=== PATIENT | female | born 1970 | race African-American/Black ===

== ENCOUNTER → 2017-06-01 | Outpatient (CLI) | payer BC ==
[~2017-06-01] MED LIST: FERR142T13 PO; LISI1TAB5 PO; OMEP20CA9 PO
[2017-06-01 13:25] LABS: BASO # 0.1 x10^3/uL (0.0-0.2); BASO % 1 % (0-3); EOS % 1 % (0-3); HEMATOCRIT 34.9 % (36.0-47.0); HEMOGLOBIN 11.9 g/dL (12.0-15.5); LYMPH # 2.3 x10^3/uL (1.0-4.8); LYMPH % 36 % (24-48); MEAN CORPUSCULAR HEMOGLOBIN 29 pg (25-35); MEAN CORPUSCULAR HGB CONC 34 g/dL (31-37); MEAN CORPUSCULAR VOLUME 84 fL (79-100); MONO % 7 % (0-9); NEUT % 55 % (31-73); PLATELET COUNT 198 x10^3/uL (140-400); RED BLOOD COUNT 4.15 x10^6/uL (3.50-5.40); RED CELL DISTRIBUTION WIDTH 14.8 % (11.5-14.5); WHITE BLOOD COUNT 6.4 x10^3/uL (4.0-11.0)
[2017-06-01 14:28] LABS: CALCIUM 8.7 mg/dL (8.5-10.1); CREATININE 0.8 mg/dL (0.6-1.0); POTASSIUM 3.6 mmol/L (3.5-5.1)
== END | disposition home or self-care (01) ==
LOC: SURGPAT 12:34
PROVIDERS: ATTEND Obstetrics & Gynecology
DX: N92.4 Excessive bleeding in the premenopausal period (principal)
CPT/HCPCS: 36415; 80048; 85025

== ENCOUNTER 2017-06-09 09:20 | Observation (INO) | payer BC, OTHER ==
[~2017-06-09] VITALS: Ht 152.4 cm; Wt 73.5 kg
[2017-06-09] VITALS (7 sets, daily range): BP systolic 132–169; BP diastolic 88–103
[~2017-06-09 09:20] MED LIST changes: +DEXAMETHASONE SOD PHOS 20 MG/5 ML VIAL. ONE; +FAMOTIDINE 20 MG/2 ML VIAL ONE; +HYDROmorphone 2 MG/ML VIAL IV PRN; +IV RINGERS,LACTATED 1000ML 1,000 ML IV SCH; +LIDOCAINE 1% PF 2 ML VIAL. ID PRN; +LIDOCAINE 2% PF Vial for OR 5 ML VIAL. ONE; +MIDAZOLAM HCL/PF 2 MG/2 ML VIAL. ONE; +MORPHINE SULFATE 2 MG/ML DISP.SYRIN. IV PRN; +ONDANSETRON PF 4 MG/2 ML VIAL. IV PRN; +ONDANSETRON PF 4 MG/2 ML VIAL. ONE; +PROCHLORPERAZINE 10 MG/2 ML VIAL. IV PRN; +PROPOFOL 20 ML IV ONE; +ROCURONIUM 100 MG/10 ML VIAL. ONE; +fentaNYL PF VIAL 100 MCG/2 ML VIAL IV PRN; +fentaNYL PF VIAL 100 MCG/2 ML VIAL ONE
[2017-06-09 10:01] LABS: NEG OBC UR NEG; POS OBC UR POS
[2017-06-09] MEDS ORDERED: fentaNYL PF VIAL 100 MCG/2 ML VIAL ONE ×3 (10:28→12:30)
[2017-06-09] MEDS ORDERED: ESMOLOL 100 MG/10 ML VIAL. IV ONE (10:31)
[2017-06-09] MEDS ORDERED: BUPIVACAINE-EPI 0.25%-1:200000 MPF 30 ML VIAL. ONE (11:16)
[2017-06-09] MEDS ORDERED: GLYCOPYRROLATE 1 MG/5 ML VIAL. ONE (11:17)
[2017-06-09] MEDS ORDERED: NEOSTIGMINE 10 MG/10 ML VIAL. ONE (11:17)
[2017-06-09] MEDS ORDERED: KETOROLAC 60 MG/2 ML INJ FOR OR. ONE (11:17)
[2017-06-09] MEDS ORDERED: SEVOFLURANE 61 TO 120 MINUTES. IH ONE (11:40)
--- NOTE | 2017-06-09 11:49 | PDOC ---
BRIEF OPERATIVE NOTE Date: Jun 09, 2017 Pre-Op Diagnosis menorrhagia, metrorrhagia, fibroids Post-Op Diagnosis same Procedure Performed lavh, Lso and R salpingectomy Surgeon Radha Lamp Decorator Kayden Anesthesiologist yes Anesthesia Type: General Blood Loss 200cc IV Fluid 1200cc Urine Output 100cc Specimens Obtained uterus, L ovary, bilateral tubes Findings see dictation Complications none SANTY KENDALL MD Jun 09, 2017 11:49
--- NOTE | 2017-06-09 11:50 | DISCH ---
DISCHARGE INSTRUCTIONS Condition on Discharge Condition on Discharge: Stable Activity After Discharge Activity Instructions for Disc: Progressive ambulation Exercise Instruction after Dis: Exercise per therapy Driving Instructions after Dis: No driving for 2 weeks Weight Bearing Status after Di: Full weight bearing, As tolerated Diet after Discharge Diet after Discharge: Regular Wound Incision Care Wound/Incision Care: Ice to area for comfort, May get incision wet Contacting the DRYasmin after DC Call your doctor for: Fever greater than 100 Follow-Up Follow up with: Dr. Kendall in 1 week SANTY KENDALL MD Jun 09, 2017 11:50
[2017-06-09] MEDS ORDERED: 0.9 % SODIUM CHLORIDE 10 ML DISP.SYRIN. IV PRN (12:00)
[2017-06-09] MEDS ORDERED: HYDROcodone/APAP 5/325MG 1 TAB TABLET PO PRN (12:00)
[2017-06-09] MEDS ORDERED: NALOXONE 0.4 MG/ML VIAL. IV PRN (12:00)
[2017-06-09] MEDS ORDERED: IBUPROFEN 600 MG TABLET. PO PRN (12:00)
[2017-06-09] MEDS ORDERED: oxyCODONE/APAP 5/325 1 TAB TABLET PO PRN (12:00)
[2017-06-09] MEDS ORDERED: MAG HYDROX/ALUMINUM HYD/SIMETH 30 ML ORAL.SUSP PO PRN (12:00)
[2017-06-09] MEDS ORDERED: BISACODYL 10 MG SUPP.RECT. PR PRN (12:00)
[2017-06-09] MEDS ORDERED: KETOROLAC 30 MG/ML INJ. IV PRN (12:00)
[2017-06-09] MEDS ORDERED: ONDANSETRON PF 4 MG/2 ML VIAL. IV PRN (12:00)
[2017-06-09] MEDS ORDERED: METOCLOPRAMIDE HCL 10 MG/2 ML VIAL. IV PRN (12:00)
[2017-06-09] MEDS ORDERED: CALCIUM CARBONATE 500 MG TAB.CHEW PO PRN (12:00)
[2017-06-09] MEDS ORDERED: HYDROmorphone 2 MG/ML VIAL IV PRN (12:00)
[2017-06-09] MEDS ORDERED: LACTULOSE 20 GM/30 ML SOLUTION. PO PRN (12:00)
[2017-06-09] MEDS ORDERED: ALBUTEROL SULFATE 2.5 MG/3 ML NEBU. NEB PRN (12:00)
[2017-06-09] MEDS ORDERED: SIMETHICONE 80 MG TAB.CHEW PO PRN (12:00)
[2017-06-09] MEDS ORDERED: HYDROmorphone 2 MG/ML VIAL IM PRN (12:00)
[2017-06-09] MEDS ORDERED: diphenhydrAMINE HCL 25 MG CAPSULE PO PRN (12:00)
[2017-06-09] MEDS ORDERED: diphenhydrAMINE 50 MG/ML VIAL IV PRN (12:00)
[2017-06-09] MEDS ORDERED: ZOLPIDEM 5 MG TABLET. PO PRN (12:00)
[2017-06-09] MEDS: fentaNYL PF VIAL 100 MCG/2 ML VIAL IV PRN ×2 (12:31→12:43)
--- NOTE | 2017-06-09 12:34 | OP ---
DATE OF SURGERY: 06/09/2017 DATE OF SERVICE: 06/09/2017 PREOPERATIVE DIAGNOSES: This is a 47-year-old female who presents today for hysterectomy due to history of menorrhagia, metrorrhagia and an enlarged fibroid uterus that was seen on ultrasound. She desired hysterectomy. POSTOPERATIVE DIAGNOSES: This is a 47-year-old female who presents today for hysterectomy due to history of menorrhagia, metrorrhagia and an enlarged fibroid uterus that was seen on ultrasound. She desired hysterectomy. PROCEDURE: LAVH, left oophorectomy and bilateral salpingectomy. SURGEON: Katlyn Kendall MD ANESTHESIA: General. COMPLICATIONS: None. ESTIMATED BLOOD LOSS: 200 mL. URINE OUTPUT: 100 mL of clear urine. DESCRIPTION OF PROCEDURE: After informed consent was obtained, the patient was taken to the operating room and given a smooth induction of anesthesia without complications. Her legs were placed in Jose stirrups and her abdomen, perineum, and vagina were all prepped and draped in the usual sterile fashion. A bivalve speculum was placed in the vagina and the anterior lip of the cervix was grasped with a single tooth tenaculum. The cervix was injected at the cervicovaginal junction with 0.25% Marcaine with epinephrine at 2, 4, 8 and 10 o'clock on the cervix. The Valtchev was then placed through the cervical os and attached to the tenaculum. We then removed the speculum and I changed gloves and went back above. A 5 mm incision was made just above the umbilicus. The bladeless trocar was placed down through this incision. The camera confirmed good trocar placement. The patient was then placed in Trendelenburg. The uterus was noted to be somewhat enlarged and nodular. Both ovaries were noted to be within normal limits. There was a ruptured, probably a corpus luteum cyst on the right side that was not bleeding and there was a small simple cyst on the left side. The 2 lateral ports were also placed under direct visualization. We then proceeded to cauterize across the round ligament on the right side. This ligament was transected and the bladder flap was created anteriorly using a combination of blunt and sharp dissection with the LigaSure. The same procedure was carried out on the opposite side. The round ligament was cauterized and transected. We then cauterized the mesosalpinx between the tube and the ovary on the right side to remove the tube from the ovary. This was without difficulty. We then cauterized across the uteroovarian pedicle to free the uterus from the ovary on the right. The same procedure was carried out on the opposite side, however, when we transected the tube from the ovary, we ran into significant amount of bleeding. We cauterized this area several times, but were not able to control the bleeding, so we ended up having to sacrifice the left ovary. This was only after multiple attempts to cauterize the bleeding with the LigaSure. We were able to visualize the ureter on the left side and we were able to cauterize across the infundibulopelvic ligament and remove the ovary. Once we did this bleeding, the bleeding stopped. We were then able to cauterize down the uterine vessels on both sides. Once we reached the uterosacral ligaments, we were able to go below, we went below and put a speculum in the vagina. The tenaculum and Valtchev were replaced by 2 Katalina thyroid clamps. A circumferential incision was created around the cervix and the bladder was retracted superiorly using blunt dissection with a Ray-Hayes. We then entered the posterior peritoneum using sharp dissection and ____ the posterior peritoneum to the posterior vaginal wall. We then proceeded to clamp, cut and ligate both uterosacral ligaments on each side. These were tagged for later use and stitched to the lateral vaginal sidewalls at the cuff. We then proceeded to clamp, cut and ligate using the vaginal LigaSure, the pedicles remaining. The remainder of the uterosacral ligaments and the cardinal ligaments and whatever uterine vasculature was left. Once the uterus was free, it was removed from the field along with the left ovary. We then proceeded to evacuate several large clots from the pelvis, but no active bleeding was noted. We then proceeded to close peritoneum using a running pursestring suture of 2-0 Vicryl. We then closed the vaginal cuff with a running locking stitch of 2-0 Vicryl. The cuff was hemostatic. We then went above to irrigate the pelvis. No bleeding was noted. More clots were evacuated. However, again we lost about 200 mL of blood mostly from the left ovary. Once this was sent, Tisseel was sprayed on all the raw surfaces. The patient tolerated the procedure well. The instruments were removed under direct visualization. The ports were removed. The gas was allowed to escape and the port sites were closed with an interrupted suture of 4-0 nylon and infiltrated with anesthetic for patient comfort. The patient tolerated the procedure well. There were no complications. KATLYN KENDALL MD DR: MICHEL/sima JOB#: [id number] / [id number]
[2017-06-10 05:58] VITALS: BP 143/95
[2017-06-10] MEDS ORDERED: PANTOPRAZOLE 40 MG TABLET.DR. PO SCH (07:30)
--- NOTE | 2017-06-10 08:35 | PDOC ---
SURGICAL PROGRESS NOTE Subjective doing well. No complaints. Discussed surgery. No bleeding. Nauseated yesterday, but none today. Eating breakfast Vital Signs Vital Signs Date Time Temp Pulse Resp B/P (MAP) Pulse Ox O2 Delivery O2 Flow Rate FiO2 06/10/17 05:58 99.1 78 18 143/95 (111) 99.1 06/09/17 13:47 98 Room Air 06/09/17 12:14 10 PATIENT HAS A SEAY: No General: Alert, Oriented X3, Cooperative, No acute distress HEENT: Mucous membr. moist/pink Lungs: Clear to auscultation, Normal air movement Heart: Regular rate, Normal S1, Normal S2, No murmurs Abdomen: Normal bowel sounds, Soft, No tenderness, No hepatosplenomegaly, No masses, Other (incisions c/d/i) Extremities: No clubbing, No cyanosis, No edema, Normal pulses, No tenderness/ swelling Labs Laboratory Tests Test 06/09/17 09:35 06/09/17 23:00 Urine Test Negative (NEG) Hematocrit 34.8 % (36.0-47.0) Laboratory Tests Test 06/09/17 09:35 06/09/17 23:00 Urine Test Negative (NEG) Hematocrit 34.8 % (36.0-47.0) I have reviewed the following labs, vitals Problem List POD #1 from [facility] and Lso with R salpingectomy. Plan is for discharge today Problems: SANTY KENDALL MD Jun 10, 2017 08:35
--- NOTE | 2017-06-10 08:39 | PDOC3 ---
Discharge Summary Visit Information Date of Admission: Jun 09, 2017 Date of Discharge: Jun 10, 2017 Admitting Diagnosis: see list Final Diagnosis see list Brief Hospital Course Allergies Allergies Coded Allergies Type Severity Reaction Last Updated Verified No Known Drug Allergies 06/09/17 No Vital Signs Vital Signs Date Time Temp Pulse Resp B/P (MAP) Pulse Ox O2 Delivery O2 Flow Rate FiO2 06/10/17 05:58 99.1 78 18 143/95 (111) 99.1 06/09/17 13:47 98 Room Air 06/09/17 12:14 10 Lab Results Laboratory Tests Test 06/09/17 09:35 06/09/17 23:00 Urine Test Negative (NEG) Hematocrit 34.8 % (36.0-47.0) Laboratory Tests Test 06/09/17 09:35 06/09/17 23:00 Urine Test Negative (NEG) Hematocrit 34.8 % (36.0-47.0) Brief Hospital Course Ms. Stafford is a 47 old female who presented with menorrhagia and metrorrhagia. She had a history of anemia in the past. She was found to have fibroids on ultrasound. She presented yesterday for lavh. She underwent lavh with Lso and R salpingectomy. She tolerated the procedure well. Today, she is ready to go home. She is ambulating and tolerating a regular diet. She is not bleeding. Her VS are stable and her hgb is stable. She is ready to go home. She is to f/u in one week in the office. Discharge Information Scheduled Lisinopril/Hydrochlorothiazide (Lisinopril-Hctz 20-12.5 Mg Tab), 1 TAB PO DAILY, (Reported) Omeprazole (Omeprazole), 1 CAP PO DAILY PRN, (Reported) Miscellaneous Medications Ferrous Sulfate (Slow Fe), 142 MG PO, (Reported) SANTY KENDALL MD Jun 10, 2017 08:39
[2017-06-10] MEDS ORDERED: hydroCHLOROthiazide 12.5 MG CAPSULE PO SCH (09:00)
[2017-06-10] MEDS ORDERED: LISINOPRIL 20 MG TABLET PO SCH (09:00)
[2017-06-10 10:20] VITALS: BP 132/91
[2017-06-10 14:20] VITALS: BP 142/82
--- NOTE | 2017-06-10 16:57 | PATHOLOGY ---
PATHOLOGY REPORT * * * * * * * * FINAL DIAGNOSIS: Uterus with attached bilateral fallopian tubes and detached ovary, laparoscopic assisted vaginal hysterectomy with bilateral salpingectomy and left oophorectomy: - Leiomyomas, uterine corpus, submucosal/intramural/subserosal, several, the largest measuring 2.5 cm (uterine weight 189.5 grams). - Mild chronic cervicitis with squamous metaplasia, focal. - Nabothian cyst, cervix. - Secretory endometrium. - Adenomyosis, uterine corpus, focal. - Status-post bilateral tubal ligation with congestion of bilateral fallopian tubes. - Right paratubal cyst. - Hemorrhagic corpus luteum cyst of left ovary. COMMENT: There is no evidence of malignancy. (JPM:; 06/10/2017) REPORT ELECTRONICALLY SIGNED BY: Luis Knapp M.D. DATE/TIME: 06/10/2017 16:56 * * * * * * * * GROSS PATHOLOGY: The specimen is received in formalin labeled "Althea Stafford, uterus with cervix, bilateral fallopian tubes and left ovary". Received is a 10.3 x 7.3 x 5.4 cm 189.5 g uterus with attached cervix and bilateral fallopian tubes. The uterine serosa is reddish purple, smooth and glistening. "The 1.3 cm cervical os is surrounded by pale yellow rogers, smooth and glistening ectocervical mucosa. The uterus is oriented using the peritoneal reflection and the anterior paracervical margin is inked black. The uterus is opened laterally to reveal a yellow red, corrugated endocervical canal measuring 3.7 cm in length. The endometrial cavity is roughly triangular in shape measuring 4.3 cm in lenth by 3.2 cm in width. The endometrium is reddish purple and granular in appearance and measures 0.5 in thickness. Serial sectioning reveals a pink rogers, trabeculated myometrium measuring 2.5 cm in thickness. There are several intramural, submucosal and subserosal fibroids, measuring from 0.7 up to 2.5 cm in maximum dimensions. The fibroids have a yellow rogers to drummond white, whorled appearance with no areas of necrosis identified grossly. The left adnexa consists of a previously ligated fimbriated fallopian tube measuring 3.5 cm in length by up to 0.8 cm in diameter.Within the specimen container there is a 4.3. x 2.7 x 1.4 cm 8g ovary. Sectioning through the fallopian tube reveals a spongy, hemorrhagic lumen and the fallopian tube otherwise appears grossly unremarkable. Sectioning through the ovary reveals a pink rogers, smooth cut surface with scott yellow corpora lutea. There is a large, collapsed cyst, measuring up to 2.5 cm in diameter. The right adnexa consists of a previously ligated fimbriated fallopian tube measuring 3.5 cm in length by up to 0.8 cm in diameter. Sectioning through the fallopian tube reveals a spongy, hemorrhagic lumen and the fallopian tube otherwise appears grossly unremarkable. Molded Candles Wicker sections are submitted as follows: A1- Anterior and posterior cervix A2-A4- anterior endomyometrium A5-A6- posterior endomyometrium A7- security systems sales representative sections from left adnexa A8- security systems sales representative sections from right fallopian tube (JPM; 06/09/17) INITIAL CPT CODE(S): A; 66102 Professional services performed by [facility] [address] Technical services performed by [facility] at [address] [place] [address]. SPECIMEN(S) RECEIVED: A.Uterus with cervix and bilateral fallopian tubes and left ovary CLINICAL HISTORY: Menorrhagia, metrorrhagia, left ovarian cyst, fibroids PATIENT: ALTHEA STAFFORD /AGE: 703/21/1970 (Age: 47) PATIENT #: [id number] ALT CASE #: SPECIMEN COLLECTION DATE: 06/09/2017 SPECIMEN RECEIVED DATE: 06/09/2017 [facility] - [address] [place] [address] - PHONE: [phone] * * * END OF REPORT * * *
== END 2017-06-10 15:20 | disposition home or self-care (01) ==
LOC: SURG 09:20 → 3 NORTH 12:14
PROVIDERS: ADMIT Obstetrics & Gynecology; ATTEND Obstetrics & Gynecology
DX: N92.0 Excessive and frequent menstruation with regular cycle (principal); N92.1 Excessive and frequent menstruation with irregular cycle; D25.9 Leiomyoma of uterus, unspecified; N83.10 Corpus luteum cyst of ovary, unspecified side
CPT/HCPCS: 36415; 58552; 81025; 85014; 86850; 86900; 86901; 88307; 96372; 96374; 96375; C1769; G0378; G0379; J0690; J1100; J1170; J1885; J2250; J2405; J2704; J2710; J2765; J3010; J3490; J7030; J7120; S0028; J2001

== ENCOUNTER 2017-08-15 16:19 | Emergency (ER) | payer BC ==
[~2017-08-15] VITALS: Ht 152.4 cm; Wt 70.3 kg
[~2017-08-15 16:19] MED LIST changes: -DEXAMETHASONE SOD PHOS 20 MG/5 ML VIAL. ONE; -FAMOTIDINE 20 MG/2 ML VIAL ONE; -HYDROmorphone 2 MG/ML VIAL IV PRN; -IV RINGERS,LACTATED 1000ML 1,000 ML IV SCH; -LIDOCAINE 1% PF 2 ML VIAL. ID PRN; -LIDOCAINE 2% PF Vial for OR 5 ML VIAL. ONE; -MIDAZOLAM HCL/PF 2 MG/2 ML VIAL. ONE; -MORPHINE SULFATE 2 MG/ML DISP.SYRIN. IV PRN; -ONDANSETRON PF 4 MG/2 ML VIAL. IV PRN; -ONDANSETRON PF 4 MG/2 ML VIAL. ONE; -PROCHLORPERAZINE 10 MG/2 ML VIAL. IV PRN; -PROPOFOL 20 ML IV ONE; -ROCURONIUM 100 MG/10 ML VIAL. ONE; -fentaNYL PF VIAL 100 MCG/2 ML VIAL IV PRN; -fentaNYL PF VIAL 100 MCG/2 ML VIAL ONE
--- NOTE | 2017-08-15 16:59 | PHYS DOC ---
Adult General Chief Complaint Chief Complaint: HIP PAIN HPI HPI Patient is a 47 year old female presents the ED complaining of right hip pain 2 days. Patient states she was raking leaves and twisted and felt a pull in her lower back and right hip. Discussed the pain as sharp. Rates the pain as 7 out of 10. States Aleve at home has improved the pain somewhat but she is still having pain with movement. Denies trauma, headache, fever, chest pain, shortness of breath, bowel/bladder changes, saddle anesthesia, hematuria or dysuria. Review of Systems Review of Systems Constitutional: Denies fever or chills [] Eyes: Denies change in visual acuity, redness, or eye pain [] HENT: Denies nasal congestion or sore throat [] Respiratory: Denies cough or shortness of breath [] Cardiovascular: No additional information not addressed in HPI [] GI: Denies abdominal pain, nausea, vomiting, bloody stools or diarrhea [] : Denies dysuria or hematuria [] Musculoskeletal: Complains of hip pain. Denies back pain. [] Integument: Denies rash or skin lesions [] Neurologic: Denies headache, focal weakness or sensory changes [] Endocrine: Denies polyuria or polydipsia [] All other systems were reviewed and found to be within normal limits, except as documented in this note. Allergies Allergies Allergies Coded Allergies Type Severity Reaction Last Updated Verified No Known Drug Allergies 06/09/17 No Physical Exam Physical Exam Constitutional: Well developed, well nourished, no acute distress, non-toxic appearance. [] HENT: Normocephalic, atraumatic, bilateral external ears normal, oropharynx moist, no oral exudates, nose normal. [] Eyes: PERRLA, EOMI, conjunctiva normal, no discharge. [] Neck: Normal range of motion, no tenderness, supple, no stridor. [] Cardiovascular:Heart rate regular rhythm, no murmur [] Lungs & Thorax: Bilateral breath sounds clear to auscultation [] Abdomen: Bowel sounds normal, soft, no tenderness, no masses, no pulsatile masses. [] Skin: Warm, dry, no erythema, no rash. [] Back: MILD RIGHT LATERAL MUSCLE SPASM. NO MIDLINE TENDERNESS, FROM, NV INTACT, NO OVERLYING SKIN CHANGES. no CVA tenderness. [] Extremities: No tenderness, no cyanosis, no clubbing, ROM intact, no edema. [] Neurologic: Alert and oriented X 3, normal motor function, normal sensory function, no focal deficits noted. [] Psychologic: Affect normal, judgement normal, mood normal. [] Current Patient Data Vital Signs Vital Signs Date Time Temp Pulse Resp B/P (MAP) Pulse Ox O2 Delivery O2 Flow Rate FiO2 08/15/17 17:15 98.1 74 16 98 Room Air 98.1 EKG EKG [] Radiology/Procedures Radiology/Procedures [] Course & Med Decision Making Course & Med Decision Making Pertinent Labs and Imaging studies reviewed. (See chart for details) []No bony tenderness. No x-ray warranted. Patient able to ambulate without assistance. Will discharge with tramadol and prednisone. Patient states she has tolerated both well in the past. Patient requesting work note. Will give patient a work note for 2 days. No focal neural deficits on exam. Patient well- appearing in exam room. Discussed follow-up with orthopedics if pain continues. Provided contact information/education. Discussed reasons to return to the ED. Patient understands and agrees with plan. Dragon Disclaimer Dragon Disclaimer This electronic medical record was generated, in whole or in part, using a voice recognition dictation system. Departure Departure Impression: Primary Impression: Muscle spasm Additional Impression: Hip pain Disposition: 01 HOME, SELF-CARE Condition: IMPROVED Referrals: NARENDRA HUTSON (PCP) Patient Instructions: Hip Pain, Muscle Strain Scripts Prednisone (PREDNISONE) 20 Mg Tablet 2 TAB PO DAILY, #10 TAB Prov: LADAN EPPERSON 08/15/17 Tramadol Hcl (TRAMADOL HCL) 50 Mg Tablet 1 TAB PO PRN Q6HRS, #15 TAB Prov: LADAN EPPERSON 08/15/17 Problem Qualifiers LADAN EPPERSON Aug 15, 2017 16:59
[2017-08-15] MEDS ORDERED: PRED20TA PO (17:04)
[2017-08-15] MEDS ORDERED: TRAM50TA PO (17:04)
[2017-08-15 17:15] VITALS: BP 173/115
== END 2017-08-15 17:20 | disposition home or self-care (01) ==
LOC: ER 16:19
DX: M25.551 Pain in right hip (principal); M62.830 Muscle spasm of back
CPT/HCPCS: 99283